=== PATIENT | female | born 1985 | race Caucasian/White ===

== ENCOUNTER 2022-08-01 10:47 | Emergency (ER) | payer SELFPAY ==
[2022-08-01 11:12] VITALS: TEMP 98.6; BMI 23.1
[2022-08-01] MEDS ORDERED: MECLIZINE HCL 25 MG TABLET (FP) PO ONE (12:25)
[2022-08-01] MEDS ORDERED: LACTATED RINGERS SOLUTION 1000 ML INFUS.BAG IV ONE (12:25)
[2022-08-01] MEDS ORDERED: ONDANSETRON 4 MG/2 ML VIAL IVPUSH ONE (12:25)
[2022-08-01 13:15] LABS: BASO % 0.6 % (0-2.0); EOS % 1.2 % (0-4.5); HEMATOCRIT 39.5 % (32.4-45.2); HEMOGLOBIN 13.7 GM/dL (10.7-15.3); LYMPH % 16.3 % (8-40); MCH 32.6 pg (25.7-33.7); MCHC 34.6 g/dl (32.0-36.0); MEAN CELL VOLUME 94.1 fl (80-96); MEAN PLT VOLUME 7.7 fl (7.5-11.1); MONO % 7.5 % (3.8-10.2); NEUT % 74.4 % (42.8-82.8); PLATELET COUNT 284 10^3/uL (134-434); RBC 4.19 M/mm3 (3.60-5.2); RDW 13.3 % (11.6-15.6)
[2022-08-01] MEDS ORDERED: ONDANSETRON 4 MG/2 ML VIAL ONE (13:21)
[2022-08-01] MEDS ORDERED: MECLIZINE HCL 25 MG TABLET (FP) ONE (13:21)
[2022-08-01 13:49] LABS: ALBUMIN 3.6 g/dl (3.4-5.0); CALCIUM 9.3 mg/dL (8.5-10.1)
[2022-08-01 13:50] LABS: BLOOD UREA NITROGEN 11.3 mg/dL (7-18)
[2022-08-01 13:53] LABS: CREATININE 0.6 mg/dL (0.55-1.3)
[2022-08-01 13:54] LABS: BILIRUBIN,TOTAL 0.9 mg/dL (0.2-1)
[2022-08-01 15:12] LABS: URINE APPEARANCE CLEAR; URINE BILIRUBIN NEGATIVE (NEGATIVE); URINE COLOR YELLOW; URINE GLUCOSE (UA) NEGATIVE (NEGATIVE); URINE KETONE NEGATIVE (NEGATIVE); URINE LEUK ESTERASE NEGATIVE (NEGATIVE); URINE NITRITE NEGATIVE (NEGATIVE); URINE PROTEIN NEGATIVE (NEGATIVE); URINE UROBILINOGEN 0.2 mg/dL (0.2-1.0)
[2022-08-01 15:15] LABS: HCG,QUALITATIVE URINE Negative
[2022-08-01 16:17] VITALS: BP 106/65; PULSE 71; RESP 18
== END 2022-08-01 16:18 | disposition home or self-care (01) ==
LOC: JER 10:47
PROC: 3E033NZ Introduction of Analgesics, Hypnotics, Sedatives into Peripheral Vein, Percutaneous Approach (ICD-10-PCS; principal; 2022-08-01)
DX: R42 Dizziness and giddiness (principal); R20.9 Unspecified disturbances of skin sensation
CPT/HCPCS: 0241U-QW; 36415; 70450-TC; 71045-TC-FY; 80053; 81003; 84703; 85025; 86850; 86900; 86901; 87086; 93005; 93010; 99285-25